=== PATIENT | female | born 1980 | race Caucasian/White ===

== ENCOUNTER 2024-07-25 18:24 | Outpatient (REF) | payer BC, SELFPAY ==
--- OUTSIDE RECORDS SUMMARY | 2024-07-25 18:29 | XMS_ITS | Encounter Summary ---
Author Organization [facility] Address [facility] [place] [address] Care Team Providers Care Perinatal Educator Name Role Phone Elian Keys APRN Primary Care Provide r Encounter Details Date Type Department Care Team (Latest Contact Info) Description 06/24/2016 8:58 PM EDT - 06/24/2016 11:59 PM EDT [place] [phone] Discharge Disposition: Home Social History Tobacco Use Types Packs/Day Years Used Date Smoking Tobacco: Never Assessed Sex and Gender Information Value Date Recorded Sex Assigned at Not on file Gender Identity Not on file Sexual Orientation Not on file documented as of this encounter Plan of Treatment Not on file documented as of this encounter Procedures Procedure Name Priority Date/Time Associated Diagnosis Comments SURGICAL PATHOLOGY REPORT Routine 06/24/2016 12:00 PM EDT documented in this encounter Results * Surgical Pathology Report (06/24/2016 12:00 PM EDT) Final Diagnosis [id number] ? Location: [facility] The signing pathologist has (i) examined the relevant preparation(s) for the specimen(s) and (ii) rendered or confirmed the diagnosis(es). . 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 B - Endocervical curettings: ?? 1. Fragments of benign endocervical and squamous mucosa. ?? 2. No evidence of dysplasia or HPV effect. Electronically signed by: ??Clinton Roy MD Verified: ??07/05/2016 ?Pathologist ADDITIONAL STUDIES Immunohistochemistry Studies: Formalin-fixed, paraffin-embedded tissue sections are studied using the polymer technique with appropriate positive and negative controls. ?These IHC studies provide the pathologist with adjunctive diagnostic information. Antibody specificity has been verified by testing antibodies on a series of in-house tissues with known immunohistochemical performance characteristics. The clinical interpretation of any antibody positive staining or its absence is evaluated within the context of clinical presentation, morphology, histopathological criteria and other diagnostic tests. Block ? Antibody ?Result (Positive/Negative) A1 ?ProEXc ?positive CLINICAL INFORMATION Specimen Submitted: A - 11 O 'clock Cervix B - ECC Clinical History: LGSIL on Pap, colposcopy performed with ECC + Bx Clinical Diagnosis: LGSIL Referring Identifier: ??[id number] Referring Identifier: ??[id number] SPECIMEN PROCESSING A - Labeled/Fixative: 11 o ??'clock cervix, formalin. Quantity/Size: One, 0.4 x 0.4 x 0.2 cm. Tissue Description: Rubbery curtis tissue. Sections/Processing: (T1) B - Labeled/Fixative: ECC, formalin. Quantity/Size: Fragments, 0.2 x 0.2 x 0.2 cm. Tissue Description: Irregular fragments of hemorrhagic curtis tissue and mucus. Sections/Processing: (T1) ??ksb 07/05/2016 2:[address] [facility] ENDOCERVICAL STRUCTURE / Unknown 06/24/2016 12:00 PM EDT 06/24/2016 12:00 PM EDT ENDOCERVICAL STRUCTURE / Unknown 06/24/2016 12:00 PM EDT 06/24/2016 12:00 PM EDT Narrative Resulting Agency Comment Spec In Lab / [facility] Reggie Ackerman MD PATHOLOGY/CYTOLOGY O NATALIIA [facility] [place] [address] documented in this encounter Visit Diagnoses Not on filedocumented in this encounter Care Teams Perinatal Educator Relationship Specialty Start Date End Date Elian Keys APRN [address] [place] [address] PCP - General 06/10/15 documented as of this encounter
--- OUTSIDE RECORDS SUMMARY | 2024-07-25 18:29 | XMS_ITS | Encounter Summary ---
Author Organization [facility] Address [facility] [place] [address] Care Team Providers Care Beautician Apprentice Name Role Phone Elian Keys APRN Primary Care Provide r Reason for Referral * Consultation (Routine) - Closed Specialty Diagnoses / Procedures Referred By Contac t Referred To Contact Otolaryngology Diagnoses Conductive hearing loss, unilateral, right ear, with unrestricted hearing on the contralateral side Saud Dunn MD [address] [place] [address] [place] [address] [facility] [place] [address] Referral ID Status Reason Start Date Expiration Date V isits Requested Visits Authorized [id number] Closed Consult, Test & Treat 12/15/2022 12/15/2023 1 1 Encounter Details Date Type Department Care Team (Latest Contact Info) Description 12/15/2022 Transcribe Orders eDH Incoming Referrals [phone] Saud Dunn MD [address] [place] [address] [place] [address] Conductive hearing loss, unilateral, right ear, with unrestricted hearing on the contralateral side Social History Tobacco Use Types Packs/Day Years Used Date Smoking Tobacco: Never Assessed Sex and Gender Information Value Date Recorded Sex Assigned at Not on file Gender Identity Not on file Sexual Orientation Not on file documented as of this encounter Plan of Treatment Scheduled Referrals Name Type Priority Associated Diagnoses Orde r Schedule Referral to ENT Outpatient Referral Routine Conductive hearing loss, unilateral, right ear, with unrestricted hearing on the contralateral side Ordered: 12/15/2022 documented as of this encounter Visit Diagnoses Diagnosis Conductive hearing loss, unilateral, right ear, with unrestricted hearing on the contralateral side documented in this encounter Care Teams Beautician Apprentice Relationship Specialty Start Date End Date Elian Keys APRN [address] [place] [address] PCP - General 06/10/15 documented as of this encounter
--- OUTSIDE RECORDS SUMMARY | 2024-07-25 18:29 | XMS_ITS | Encounter Summary ---
Author Organization [facility] [place] [address] Care Team Providers Care Employee Benefits Manager Name Role Phone Elian Keys APRN Primary Care Provide r Encounter Details Date Type Department Care Team (Late st Contact Info) Description 06/09/2015 [place] [phone] Elian Keys APRN [address] [place] [address] Social History Tobacco Use Types Packs/Day Years [...] Associated Diagnosis Comments SURGICAL PATHOLOGY REPORT Routine 06/09/2015 12:00 PM EDT documented in this encounter Results * Surgical Pathology Report (06/09/2015 12:00 PM EDT) Final Diagnosis ? [facility] ? Provider: ?? MADIE, ?Pt. Name: ?? PINKY GIL ?ELIAN Talavera ? Acc #: ?[id number] ? Pt. ? Col Date: ?? 06/09/2015 ?/Sex: ?1980,(34 years),Female ? Rec Date: ?? 06/10/2015 ?LOC: ?[facility] ? SURGICAL PATHOLOGY ? DIAGNOSIS ? Skin, left chest wall, excision: ?- PYOGENIC GRANULOMA (LOBULAR CAPILLARY HEMANGIOMA) ? CR-0 ? 06/11/15 ? BJM ? 06/12/15 Verified by: ? Eliecer PÉREZ, Juan Manuel Che ? Dermatopathologi st, Bone & Soft Tissue ? Pathologist ? (Electronic Signature) ? The attending pathologist whose signature appears on this report has ? reviewed all diagnostic slides and has edited the gross and/or ? microscopic portion of the report in rendering the final pathologic ? diagnosis. ? GROSS DESCRIPTION ? A - Labeled/Fixative : Left chest wall, formalin. ? Quantity/Size: Single, 0.6 x 0.5 x 0.3 cm. ? Tissue Description: Unoriented ellipse of curtis-white skin with a central ? raised, granular curtis-marsh papule, 0.3 cm. ? Sections/Process ing: The specimen is inked and serially sectioned. ? The ends are submitted in (1); the remainder in (2). (T2) ??pps ? CLINICAL INFORMATION ? Specimen Submitted: ? A - Basal cell carcinoma-left chest wall ? Clinical History: ? Basal cell cancer left chest wall ? Clinical Diagnosis: ? Same ? Referring Identifier: ??[id number] ? [id number] 06/12/2015 10:25 AM EDT [facility] SPECIMEN FROM SKIN / Unknown 06/09/2015 12:00 PM EDT 06/09/2015 12:00 PM EDT Elian Keys APRN PATHOLOGY/CYT OLOGY ORDERABLES Performing Organization Address City/State/[facility] Co de Phone Number [facility] [place] [place] [address] documented in this encounter Visit Diagnoses Not on filedocumented in this encounter Care Teams Employee Benefits Manager Relationship Specialty Start Date End Date Elian Keys APRN [address] [place] [address] PCP - General 06/10/15 documented as of this encounter
--- OUTSIDE RECORDS SUMMARY | 2024-07-25 18:29 | XMS_ITS | Encounter Summary ---
Author Organization [facility] Address [facility] [place] [address] Care Team Providers Care Welder Fitter Helper Name Role Phone MassimoTayjeremíasmart Talavera APRN Primary Care Provide r Encounter Details Date Type Department Care Team (Latest Contact Info) Description 01/06/2016 8:44 PM EST - 01/06/2016 11:59 PM EST [place] [phone] Discharge Disposition: Home Social History Tobacco Use Types Packs/Day Years Used Date Smoking Tobacco: Never Assessed Sex and Gender Information Value Date Recorded Sex Assigned at Not on file Gender Identity Not on file Sexual Orientation Not on file documented as of this encounter Plan of Treatment Not on file documented as of this encounter Procedures Procedure Name Priority Date/Time Associated Diagnosis Comments PAINT MAKER CYTOLOGY INTERPRETATION Routine 01/06/2016 12:00 PM EST PAINT MAKER CYTOLOGY FINAL REPORT Routine 01/06/2016 12:00 PM EST documented in this encounter Results * (ABNORMAL) PAINT MAKER Cytology Interpretation (01/06/2016 12:00 PM EST) Mental Health Aide Cytology Interpretation LSIL-H(A) [facility] Comment:Mental Health Aide Cytology Final R eport Endocervical Component Present [facility] AP Specimen 01/06/2016 12:0 0 PM EST 01/07/2016 8:38 PM EST Narrative Resulting Agency Comment Spec In Lab / [facility] Adria Meneses MD PATHOLOGY/CYTOLOGY O RDERABLES [facility] [place] [address] * Mental Health Aide Cytology Final Report (01/06/2016 12:00 PM EST) Mental Health Aide Cytology Final Report [id number] ? Location: [facility] The signing pathologist has (i) examined the relevant preparation(s) for the specimen(s) and (ii) rendered or confirmed the diagnosis(es). . ? Mental Health Aide Final DIAGNOSIS Epithelial Cell Abnormality Low Grade Squamous Intraepithelial Lesion (LSIL) cannot exclude a High Grade Squamous Intraepithelial Lesion. For consensus guidelines for the management of women with abnormal cervical cancer screening tests, please see: ??http://www.asccp .org/consensus/cyt ological.shtml These guidelines were published in the [place] Journal of Obstetrics and Gynecology (2007;197(4):346-3 55). 01/12/16 ?? Screened by: ??DMG ??AB,KELLIEG 01/13/16 ?? Verified by: ??Zaira PÉREZ, Adria Mustafa - Cytopathologist STATEMENT OF ADEQUACY Specimen submitted is satisfactory. Endocervical component present. CLINICAL INFORMATION HPV Option: ? Reflex HPV Preparation: ?Liquid Based Pap Specimen Source: ?Cervical Endocervical LBP LMP: ?12/17/15 Hormones?: ?No Hysterectomy?: ?No ?: ?No ?: ?No I.U.D.?: ?No Pelvic Radiation: ? No Prior PAINT MAKER Therapy?: ? No Hist Abnl Pap/Biopsy?: ??Yes Hist of HPV Vaccine?: ?? No Hist of Smoking?: ? No Hist of NICANOR exposure?: ??No Clinical Data, Significant Therapy and Clinical Impression: ?? _ Referring Identifier: ??[id number] This Pap Test has been evaluated with the assistance of the [employer] Pap Test Imaging System. Note: The Pap test is a screening test for cervical cancer with an inherent false-negative rate dependent upon several variables. ??For further information please contact the [facility]. Reference: ??Nolvia CS. ??Television Operator of Pap Smear Results. ??In: ??Melissa BS, Dimitrios HH, ed. ??The Pap Smear. ??[place]: ??Yosvany, 2002: ??71-77. [facility] 01/06/2016 12:0 0 PM EST Narrative Resulting Agency Comment Spec In Lab / [facility] Reggie Ackerman MD PATHOLOGY/CYTOLOGY O RDERABLES [facility] [place] [address] documented in this encounter Visit Diagnoses Not on filedocumented in this encounter Care Teams Welder Fitter Helper Relationship Specialty Start Date End Date Elian Keys APRN [address] [place] [address] PCP - General 06/10/15 documented as of this encounter
--- OUTSIDE RECORDS SUMMARY | 2024-07-25 18:29 | XMS_ITS | Encounter Summary ---
Author Organization [facility] Address [facility] [place] [address] Care Team Providers Care Clerk Of Court Name Role Phone Elian Keys APRN Primary Care Provide r Encounter Details Date Type Department Care Team (Latest Contact Info) Description 04/08/2024 10:02 PM EDT - 04/08/2024 11:59 PM EDT Hospital [place] [phone] Discharge Disposition: Home Social History Tobacco Use [...] Associated Diagnosis Comments SURGICAL PATHOLOGY REPORT Routine 04/08/2024 4:44 PM EDT documented in this encounter Results * Surgical Pathology Report (04/08/2024 4:44 PM EDT) Final Diagnosis [id number] ? Location: [facility] The signing pathologist has (i) examined the relevant preparation(s) for the specimen(s) and (ii) rendered or confirmed the diagnosis(es). . ?Surgical Pathology DIAGNOSIS A - Right forearm, skin punch biopsy: - Intradermal melanocytic nevus with spindled and epithelioid features, focally ??extending to the peripheral specimen edge (see discussion) B - Left side of nose, skin punch biopsy: - Intradermal melanocytic nevus, ?? present at the peripheral and deep specimen edges Electronically signed by: ?Brina PÉREZ, PhD, Mendoza Lawrence Verified: ??04/19/2024 11:17 ??Dermatopathologist, Bone & Soft Tissue Pathologist Performed at: ??-[facility] Dept. of Pathology, [place] [address] Berry Planter: Jax Chávez MD, FCAP, ??CLIA Certificate: [id number] DISCUSSION A - The biopsy reveals a well-demarcated, superficial intradermal proliferation of spindled to epithelioid melanocytes. Severe cytologic atypia and dermal mitotic figures are not identified. The immunohistochemical findings (detailed below) further support the morphologic impression of a melanocytic nevus. The overall findings raise a differential diagnosis that includes a Spitz nevus and a combined nevus with an amelanotic blue nevus component. If the site is watched, then further clinical evaluation would be encouraged if there is evidence of recurrence. This case was also reviewed by an additional intradepartmental dermatopathologist for consensus diagnosis. ADDITIONAL STUDIES Immunohistochemistry Studies: Formalin-fixed, paraffin-embedded tissue [...] tests. Block ? Antibody ?Result (Positive/Negative) A1 ? SOX10 ?Highlights melanocytes ? PRAME ?? Negative ? BRAF-V600E ?? Negative ? p16 ?? Retained ? Melan-A/Ki67 ?? Essentially negative for dual staining SPECIMEN(S) SUBMITTED A - right forearm B - left side of nose Referring Identifier: ??[id number] CLINICAL INFORMATION Skin tag . SPECIMEN PROCESSING A - Labeled/Fixative: Right arm, formalin. Quantity/Size: ??Single, 0.4 cm. Tissue Description: Punch of curtis-pink skin. Sections/Processing: Inked, bisected and entirely submitted in 1 cassette labeled A1. B - Labeled/Fixative: Left nose, formalin. Quantity/Size: ??Single, 0.2 cm. Tissue Description: Punch of white skin. Sections/Processing: Submitted in toto ??in 1 cassette labeled B1. ??sns 04/19/2024 11:17 AM EDT [facility] SPECIMEN FROM SKIN / Unknown 04/08/2024 4:44 PM EDT 04/08/2024 4:44 PM EDT SPECIMEN FROM SKIN / Unknown 04/08/2024 4:44 PM EDT 04/08/2024 4:44 PM EDT Narrative Resulting Agency Comment Spec In Lab / [facility] Reggie Ackerman MD PATHOLOGY/CYTOLOGY O RDERABLES Performing Organization Address City/State/[facility] Co de Phone Number [facility] [place] [address] documented in this encounter Visit Diagnoses Not on filedocumented in this encounter Care Teams Clerk Of Court Relationship Specialty Start Date End Date Elian Keys APRN [address] [place] [address] PCP - General 06/10/15 documented as of this encounter
--- OUTSIDE RECORDS SUMMARY | 2024-07-25 18:29 | XMS_ITS | Clinical Summary ---
Author Organization [facility] Address [facility] [place] [address] Care Team Providers Care Railroad Firer/Fireman Name Role Phone Elian Keys APRN Primary Care Provide r Social History Tobacco Use Types Packs/Day Years Used Date Smoking Tobacco: Never Assessed Sex and Gender Information Value Date Recorded Sex Assigned at Not on file Gender Identity Not on file Sexual Orientation Not on file Plan of Treatment Health Maintenance Due Date Last Done Comments CT Colonography 1978 Colonoscopy 1978 Colorectal Cancer Screening 1978 FIT DNA 1978 FIT 1978 Sigmoidoscopy (10 year) with FIT yearly 1978 Sigmoidoscopy 1978 HIV screen 1996 Hepatitis C Screening 1996 Hepatitis B vaccine (0-59 yrs) (1) 1997 Tdap adult 1997 Tetanus vaccine 1997 Breast Cancer Share Decision Needed 2018 Breast Cancer screening 2018 PAP Smear 01/05/2019 01/06/2016 Covid-19 Vaccine ( season) 2024 Influenza (Flu) vaccine (1 o f 1 - Influenza standard series) 07/07/2024 Procedures Procedure Name Priority Date/Time Associated Diagnosis Comments BRAILLE TEACHER CYTOLOGY FINAL REPORT Routine 01/06/2016 12:00 PM EST from Last 3 Months or Most Recently Relevant to Health Maintenance Results * Branch Account Manager Cytology Final Report (01/06/2016 12:00 PM EST) Branch Account Manager Cytology Final Report [id number] ? Location: [facility] The signing pathologist has (i) examined the relevant preparation(s) for the specimen(s) and (ii) rendered or confirmed the diagnosis(es). . ? Branch Account Manager Final DIAGNOSIS Epithelial Cell Abnormality Low Grade Squamous Intraepithelial Lesion (LSIL) cannot exclude a High Grade Squamous Intraepithelial Lesion. For consensus guidelines for the management of women with abnormal cervical cancer screening tests, please see: ??http://www.asccp .org/consensus/cyt ological.shtml These guidelines were published in the [place] Journal of Obstetrics and Gynecology (2007;197(4):346-3 55). [...] I.U.D.?: ?No Pelvic Radiation: ? No Prior BRAILLE TEACHER Therapy?: ? No Hist Abnl Pap/Biopsy?: ??Yes Hist of HPV Vaccine?: ?? No Hist of Smoking?: ? No Hist of NICANOR exposure?: ??No Clinical Data, Significant Therapy and Clinical Impression: ?? _ Referring Identifier: ??[id number] This Pap Test has been evaluated with the assistance of the [employer] Pap Test Imaging System. Note: The Pap test is a screening test for cervical cancer with an inherent false-negative rate dependent upon several variables. ??For further information please contact the [facility] Laboratory. Reference: ??Nolvia REED. ??Plant Maintenance Mechanic of Pap Smear Results. ??In: ??Melissa BS, Dimitrios HH, ed. ??The Pap Smear. ??[place]: ??Yosvany, 2002: ??71-77. [facility] 01/06/2016 12:0 0 PM EST Narrative Resulting Agency Comment Spec In Lab / [facility] Reggie Ackerman MD PATHOLOGY/CYTOLOGY O NATALIIA [facility] [place] [address] from Last 3 Months or Most Recently Relevant to Health Maintenance Care Teams Railroad Firer/Fireman Relationship Specialty Start Date End Date Elian Keys, SET BUILDER [address] [place] [address] PCP - General 06/10/15
--- OUTSIDE RECORDS SUMMARY | 2024-07-25 18:30 | XMS_ITS | Patient Health Record ---
Author Organization [facility] Address [address] [place] [address] Care Team Providers Care Crematory Attendant Name Role Phone Reggie Ackerman Primary Care Provider [phone] Rene Delarosa [phone] ALLERGIES Allergen (clinical drug ingredient) Drug/Non Drug Allergy documented on EMR Reaction Allergy Type Onset Date Status Substance with sulfonamide structure and antibacterial mechanism of action (substance) Sulfa (uncoded) Unknown Allergy Active REASON FOR REFERRAL No Information MEDICATIONS Medication SIG (Take, Route, Frequency, Duration) Notes Start Date End Date Status Flonase Sensimist 27.5 MCG/SPRAY 1 spray in each nostril Nasally Once a day for 30 day(s) 07/23/2020 Active Diflucan 150 MG 1 tablet Orally once for 1 days 07/17/2020 Not-Taking Amoxicillin-Pot Clavulanate 875-125 MG 1 tablet Orally every 12 hrs for 7 days 07/09/2020 Not-Taking IMMUNIZATIONS Vaccine Route Administration Date Status Comme nts Tdap adacel or Boostrix NONS CEDENO Adults Unknown 08/24/2009 Administered SOCIAL HISTORY Tobacco Use: Social History Observation Description Date Details (start date - stop date) Never Smoker NA - NA Sex Assigned At : Social History Observation Description Sex Assigned At Unknown SMOKING Question Answer Notes Are you a: nonsmoker DRUG SCREENING Question Answer Notes Have you used drugs other th an those for medical reasons in the past 12 months? 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 Herpes simplex type 2 infection (043970365) Problem Moderate episode of recurrent major depressive disorder (F33.1) 08/17/2016 Active confirmed [id number] PLAN OF TREATMENT Future Test Test Name Order Date HIV 1/2 ANTIBODIES 12/27/2019 RPR 12/27/2019 HEP-C, AB Screen (G0472) 12/27/2019 Insurance Providers Payer Name Payer Address Payer Phone Subscriber Number Group Number Insured Name Patient Relationship to Insured Coverage Start Date Coverage End Date [employer] [facility] [place] [place] [address] [place] [address] [id number] SARA ROBERTS Self - patient is the insured SELF [place] [address] SARA ROBERTS Self - patient is the insured MEDICAL (GENERAL) HISTORY Medical History History ICD Code depression seasonal allergies Bilateral bunion HSV II Depression Bilateral bunions M20.11 Surgical History Surgery Date(Month/Year) ear surgery 1989 tubal ligation 2000 LEEP 08/2016 Total vaginal hysterectomy with bilatera l slapingectomies 04/27/18
== END 2024-07-25 18:25 | disposition home or self-care (01) ==
LOC: LBN 18:24
PROVIDERS: PCP Family Medicine; Visit Provider Registered Nurse Maternal Newborn
DX: H90.11 Conductive hearing loss, unilateral, right ear, with unrestricted hearing on the contralateral side (principal); H62.41 Otitis externa in other diseases classified elsewhere, right ear; B36.9 Superficial mycosis, unspecified
CPT/HCPCS: 87070; 87205

== ENCOUNTER 2024-12-16 17:31 | Outpatient (REF) | payer BC, SELFPAY | END 2024-12-16 17:32 | disposition home or self-care (01) | LOC: LBN 17:31 | PROVIDERS: PCP Family Medicine; Visit Provider Registered Nurse Maternal Newborn | DX: B36.9 Superficial mycosis, unspecified (principal); H62.41 Otitis externa in other diseases classified elsewhere, right ear | CPT/HCPCS: 87070; 87205 ==